=== PATIENT | female | born 1935 | race Caucasian/White ===

== ENCOUNTER 2019-03-15 19:42 | Inpatient (IN) | payer OTHER, MEDICAID ==
[~2019-03-15] VITALS: Ht 170.2 cm; Wt 64.9 kg
[2019-03-15 19:45] VITALS: BP_SYST 100
--- NOTE | 2019-03-15 20:11 | NUR ---
Patient to ER bed 8 to gown for evaluation. Side rails up. Report given to MARTHA Britt.
[2019-03-15] MEDS ORDERED: NACL 0.9% 1,000 ML IV ONE (20:45)
--- NOTE | 2019-03-15 20:45 | NUR ---
Dr. Nolasco bedside for pt eval
[2019-03-15 20:52] LABS: BASOPHILS # (AUTO) 0.1 K/uL (0.0-0.2); BASOPHILS % (AUTO) 0.4 % (0.0-2.0); EOSINOPHILS # (AUTO) 0.1 K/uL (0.0-0.4); EOSINOPHILS % (AUTO) 0.3 % (0.0-4.0); HEMATOCRIT 32.3 % (36-48); HEMOGLOBIN 10.8 g/dL (12.0-16.0); LYMPHOCYTES # (AUTO) 1.8 K/uL (1.0-5.5); LYMPHOCYTES % (AUTO) 7.9 % (20.5-51.5); MEAN CORPUSCULAR HEMOGLOBIN 32 pg (27-31); MEAN CORPUSCULAR HGB CONC 34 % (32-36); MEAN CORPUSCULAR VOLUME 95 fL (79.0-98.0); MONOCYTES # (AUTO) 2.5 K/uL (0.0-1.0); MONOCYTES % (AUTO) 10.9 % (1.7-9.3); NEUTROPHILS # (AUTO) 18.7 K/uL (1.8-7.7); NEUTROPHILS % (AUTO) 80.5 % (40.0-70.0); PLATELET COUNT (AUTO) 395 K/uL (130-430); RED BLOOD CELL COUNT(AUTO) 3.41 MIL/uL (4.2-6.2); RED CELL DISTRIBUTION WIDTH 12.8 % (9.0-15.0); WHITE BLOOD COUNT (AUTO) 23.2 K/uL (4.8-10.8)
--- NOTE | 2019-03-15 20:58 | NUR ---
Meliton FLOREZ from [facility] to ED C/O cough, suspicion of UTI, dysuria, nausea, vomiting, and diffuse body aches that began this morning. Patient states that every time she intakes fluids she vomits. She states her body aches are likely due to her arthritis which has been treated with morphine VSS no s/s of acute distress Resting on [employer] rails up
--- NOTE | 2019-03-15 21:00 | NUR ---
PCXR bedside, well tolerated
[2019-03-15 21:13] LABS: ANION GAP 5 (5-15); CALCIUM 9.3 mg/dL (8.4-11.0); CHLORIDE 98 mmol/L (98-107); CREATININE 0.64 mg/dL (0.55-1.30); GLUCOSE 233 mg/dL (70-99); POTASSIUM 3.8 mmol/L (3.5-5.1); SODIUM SERUM 133 mmol/L (136-145); UREA NITROGEN, BLOOD 12 mg/dL (8-21)
[2019-03-15 21:17] LABS: ALANINE AMINOTRANSFERASE 21 U/L (12-78); ALBUMIN 2.9 g/dL (3.4-4.8); ASPARTATE AMINOTRANSFERASE 13 U/L (10-37); TOTAL BILIRUBIN 0.4 mg/dL (0.0-1.0)
--- NOTE | 2019-03-15 22:00 | NUR ---
VSS no s/s of acute distress, IVF and Medications well tolerated
[2019-03-15] MEDS ORDERED: MORPHINE 2 MG/ML INJ. SYRINGE IVP ONE (22:15)
[2019-03-15] MEDS ORDERED: cefTRIAXone 1 GM IVPB PREMIX 50 ML IV ONE (22:15)
--- NOTE | 2019-03-15 23:00 | NUR ---
Dr. Nolasco bedside updating pt on adm for PNA
[2019-03-15 23:04] LABS: BILIRUBIN,URINE NEGATIVE (NEGATIVE); CLARITY/URINE CLEAR (CLEAR); COLOR,URINE YELLOW (YELLOW); GLUCOSE,URINE NEGATIVE (NEGATIVE); KETONES,URINE NEGATIVE (NEGATIVE); LEUKOCYTE ESTERASE ,URINE 2+ (NEGATIVE); NITRITE, URINE POSITIVE (NEGATIVE); PROTEIN URINE NEGATIVE (NEGATIVE); UROBILINOGEN,URINE 0.2 (0.2-1.0)
[2019-03-15 23:06] LABS: BLOOD, URINE TRACE (NEGATIVE)
[2019-03-15 23:13] LABS: BACTERIA,URINE MANY /HPF (None Seen); WBC,URINE >100 /HPF (0-3)
[2019-03-15 23:14] LABS: MUCUS,URINE 1+ /LPF (None Seen)
[2019-03-15] MEDS ORDERED: ONDANSETRON HCL 4 MG/2 ML VIAL IVP PRN (23:15)
[2019-03-16] VITALS (7 sets, daily range): BP systolic 96–160
--- NOTE | 2019-03-16 00:05 | NUR ---
ADMISSION: The patient, ANDREI LYON, 84 y/o, F admitted by MINE BRUNER MD, was given written information regarding hospital policies, unit procedures and contact persons. Valuables were checked and pt oriented to her room and surrounding.
--- NOTE | 2019-03-16 00:05 | NUR ---
Patient will be admitted to care of Dr. Quiroz. Admitted to MedSurg unit. Will go to room 107A. Belongings list completed. Complete and up to date summary report printed. SBAR report to be given at bedside with opportunity for questions.
[2019-03-16] MEDS ORDERED: FLU VACC TS2019(65UP)/MF59C/PF 45 MCG/0.5 ML SYRINGE I.M. PRN (01:45)
--- NOTE | 2019-03-16 02:35 | NUR ---
Pt is requesting diarrhea medication. Pt stated she has had 4 loose bowel movements since arrival in her room and will be having another bowel movement soon. Pt is also requesting Tylenol for generalized arthritic pain. Unable to administer Tylenol at this time because MD did not indicate pain scale. Pt also has non-productive cough and was informed MD will be paged. Addendum: 03/16/19 at 0515 by Vivian Soriano RN Toilet hat placed in patient's bathroom and pt was informed stool specimen is needed inside the hat the next time she moves her bowel. Pt verbalized understanding.
--- NOTE | 2019-03-16 02:37 | NUR ---
PAGED PAGED FOR ORDERS, SPOKE WITH MANNY
[2019-03-16] MEDS ORDERED: ACETAMINOPHEN 500 MG TABLET ONE (02:45)
--- NOTE | 2019-03-16 02:48 | NUR ---
Consultation Paged Reason for Consultation: Pulmonary Was consult called: Y Person to be notified: Arlene Consulting Physician: Dr. Smyth Electrotype Finisher Ordering Physician: Dr. Quiroz
--- NOTE | 2019-03-16 02:53 | NUR ---
Consultation Paged Reason for Consultation: ID Was consult called: Y Person to be notified: Arlene Consulting Physician: [employer] Ordering Physician: Dr. Quiroz
--- NOTE | 2019-03-16 03:00 | NUR ---
Pt came to [facility], nico and requesting Tylenol for generalized arthritic pain. Pt was informed MD will be paged again.
--- NOTE | 2019-03-16 03:01 | NUR ---
PAGEKenia STEVENS MD REGARDING ORDERS, SPOKE WITH MANNY
[2019-03-16] MEDS: ACETAMINOPHEN 500 MG TABLET PO PRN (03:06)
--- NOTE | 2019-03-16 05:00 | NUR ---
Pt is resting quietly in bed. Photos of back and eye bags taken. Fall and safety precautions are in place.
--- NOTE | 2019-03-16 06:34 | NUR ---
Pt is awake and resting quietly in bed. No fall or injury noted this shift. Fall and safety precautions are in place. No further bowel movement noted after toilet hat was placed in pt's bathroom. Will endorse to day shift nurse.
--- NOTE | 2019-03-16 07:27 | NUR ---
Am Rounds: Patient lying on the bed. Resting. Call light with in reach.Bed locked at lowest position. Not in any distress. Continue to monitor.
[2019-03-16 08:09] LABS: HEMATOCRIT 31.4 % (36-48); HEMOGLOBIN 10.6 g/dL (12.0-16.0); MEAN CORPUSCULAR HEMOGLOBIN 32 pg (27-31); MEAN CORPUSCULAR HGB CONC 34 % (32-36); MEAN CORPUSCULAR VOLUME 94 fL (79.0-98.0); PLATELET COUNT (AUTO) 391 K/uL (130-430); RED BLOOD CELL COUNT(AUTO) 3.34 MIL/uL (4.2-6.2); WHITE BLOOD COUNT (AUTO) 23.4 K/uL (4.8-10.8)
[2019-03-16 08:17] LABS: ANION GAP 7 (5-15); CALCIUM 9.2 mg/dL (8.4-11.0); CHLORIDE 95 mmol/L (98-107); CREATININE 0.61 mg/dL (0.55-1.30); GLUCOSE 208 mg/dL (70-99); SODIUM SERUM 130 mmol/L (136-145); UREA NITROGEN, BLOOD 8 mg/dL (8-21)
[2019-03-16 08:35] LABS: POTASSIUM 2.8 mmol/L (3.5-5.1)
--- NOTE | 2019-03-16 09:30 | NUR ---
BRP W ASSIST: PATIENT BEEN COUGHING BUT MINIMAL PHLEGM .WENT TO THE TOILET.NO DISTRESS.
[2019-03-16] MEDS: cefTRIAXone 1 GM in D5W 50 ML IV SCH (09:36)
[2019-03-16] MEDS: AZITHROMYCIN 250 MG in NS 250 ML IV SCH (09:46)
[2019-03-16] MEDS ORDERED: POTASSIUM CHLORIDE 20 MEQ TAB.PRT.SR PO ONE (10:30)
[2019-03-16] MEDS ORDERED: guaiFENesin/DEXTROMETHORPHAN 118 ML PO PRN (10:30)
[2019-03-16] MEDS: guaiFENesin/DEXTROMETHORPHAN 10 ML UDC PO PRN ×3 (11:08→20:22)
[2019-03-16] MEDS ORDERED: BENZONATATE 100 MG CAPSULE (TESSALON) PO ONE (11:30)
[2019-03-16] MEDS ORDERED: ENOXAPARIN SODIUM 40 MG/0.4 ML SYRINGE SUBCUT ONE (11:30)
--- NOTE | 2019-03-16 12:30 | NUR ---
RN ROUNDS: LUNCH SERVED. PER SON AT THE BEDSIDE,PATIENT NO APPETITE. TOOK APPLE JUICE.
[2019-03-16 13:35] LABS: ATYPICAL LYMPHOCYTES % 0 % (0-0); BAND % (MANUAL) 4 % (0-6); BASOPHILS % (MANUAL) 0 % (0-2); EOSINOPHILS % (MANUAL) 0 % (0-7); LYMPHOCYTES % (MANUAL) 9 % (20-46); MONOCYTES % (MANUAL) 9 % (0-11)
[2019-03-16] MEDS: IPRATROPIUM BROM 0.5 MG/2.5 ML VIAL.NEB (ATROVENT) INH SCH ×2 (14:49→20:20)
[2019-03-16] MEDS: LevALBUTEROL HCL 1.25 MG/0.5 ML *CONC.* VIAL.NEB (XOPENEX CONC.) INH SCH ×2 (14:49→20:20)
[2019-03-16] MEDS: BENZONATATE 100 MG CAPSULE (TESSALON) PO SCH ×2 (15:08→20:21)
--- NOTE | 2019-03-16 16:41 | NUR ---
PAGED PAGED MINE LEON AT [phone] SPOKE WITH JUNE.
[2019-03-16] MEDS ORDERED: SIMV20TA2 PO (17:21)
[2019-03-16] MEDS ORDERED: DORZ10DR10 LEFT EYE (17:21)
[2019-03-16] MEDS ORDERED: LOSA50TA3 PO (17:21)
[2019-03-16] MEDS ORDERED: GLU500 PO (17:21)
[2019-03-16] MEDS ORDERED: TRAZ-219 PO (17:21)
[2019-03-16] MEDS ORDERED: XALEYE OP (17:21)
--- NOTE | 2019-03-16 17:23 | NUR ---
NEW ORDER: SPOKE WITH DR Sarah BRUNER AND MED RECONCILED.INFORMED MD PATIENT WITH HISTORY OF DM AND NO ACCU CHECK NEEDED DUE TO BLOOD SUGAR IS CONTROLLED PER MD.MAY USED POLST MODIFIED CODE PER MD.
[2019-03-16] MEDS: metFORMIN HCL 500 MG TABLET PO SCH (18:11)
--- NOTE | 2019-03-16 18:35 | NUR ---
END OF SHIFT: PATIENT RESTING. COUGHING IMPROVED. CALL LIGHT WITH IN REACH. BED LOCKED AT LOWEST POSITION. SAFETY MEASURES RENDERED. CONDITION GUARDED.
--- NOTE | 2019-03-16 19:15 | NUR ---
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 lt.eye:eye sight acuity compromised.pt.presents capable to ambulate independent.pt.presents iv access intact;patent:iv lock. general statu stable.respiratory status stable;slight labored.congestion present.call light/telephone w/in the pt's reach.
--- NOTE | 2019-03-16 20:00 | NUR ---
pt.assessed.v/s assessed.values w/in normal limits.no c/o pain,nausea.i have apprised the pt.that i may provide snacks/beverages w/in the shift.no requests posited@this hour.general status stable.respiratory status stable:@room air.o2-sat%=94%.pt capable to reposition self. call light/telephone w/in reach of the pt.
[2019-03-16] MEDS: DORZOLAMIDE HCL/TIMOLOL MAL. 10 ML EYE DROPS (COSOPT) LEFT EYE SCH (20:19)
[2019-03-16] MEDS: LATANOPROST 2.5 ML DROPS (XALATAN) OP SCH (20:19)
[2019-03-16] MEDS: traZODone HCL 50 MG TABLET (DESYREL) PO SCH (20:20)
[2019-03-16] MEDS: LOSARTAN POTASSIUM 50 MG TABLET (COZAAR) PO SCH (20:20)
[2019-03-16] MEDS: SIMVASTATIN 20 MG TABLET PO SCH (20:21)
[2019-03-16] MEDS: BUDESONIDE 0.5 MG/2 ML AMPUL.NEB INH SCH (20:30)
--- NOTE | 2019-03-16 20:30 | NUR ---
pt.had requested medication;cough.i have administered robitussin;5ml po. Addendum: 03/17/19 at 0206 by Jagjit Gardner RN to f/u re;re-assessment of the medications efficacy.
--- NOTE | 2019-03-16 21:00 | NUR ---
2100p medications administered.pt.capable to ingest medications whole w/out difficulty.no requested posited@ this hour.
--- NOTE | 2019-03-16 21:55 | NUR ---
PAGED PAGED DOCTOR Roxana BRUNER
--- NOTE | 2019-03-16 22:00 | NUR ---
pt assessed.pt.presents quiescent affect;calm,resting.pt.had requested toilet paper.i have paged evs;toilet paper provided. no additional requests posited@this hour.general status stable.respiratory status stable;call light/telephone w/in reach of the pt.
--- NOTE | 2019-03-17 | NUR ---
pt.assessed v/s assessed:values w/in normal limits.pt had requested medication:cough/diarrhea.i have administered;immodium; 2mg po/robitussin:5ml po.no additonal requests posited@this hour.general status stable.respiratory status stable;unbalbored.pt.capable to reposition self.call light/telephone placed w/in reach of the pt.
[2019-03-17] MEDS: guaiFENesin/DEXTROMETHORPHAN 10 ML UDC PO PRN ×5 (00:14→21:29)
[2019-03-17] MEDS: LOPERAMIDE HCL 2 MG CAPSULE PO PRN ×3 (00:14→23:38)
--- NOTE | 2019-03-17 02:00 | NUR ---
pt.assessed.pt.presents quiescent affect;calm,somnolent./general status stable.respiratory status stable:o2-sat%=96%. pt capable to reposition self.call light/telephone w/in reach of the pt.
--- NOTE | 2019-03-17 04:00 | NUR ---
pt.assessed.pt.presents quiescent affect;resting,awake.general status anxious.no c/o pain,nausea.no requests posited@this hour. pt.capable to reposition self.call light/telephone w/in reach of the pt.
--- NOTE | 2019-03-17 04:30 | NUR ---
pt.requested medication;pain/cough.i have administered morhpine;2mg ivp to re-assess the efficacy of the pain medication per pain mgx protocol.i have administered robitussin;5ml po.pt.requested a blanket.i have provide the blanket;warm.no additional requests posited @this hour.
[2019-03-17] MEDS: MORPHINE 2 MG/ML INJ. SYRINGE IVP PRN ×3 (04:34→21:31)
--- NOTE | 2019-03-17 05:59 | NUR ---
pt.assessed.pt.presents quiescent affect;calm,somnolent.general status stable.respiratory status stable;unlabored.pt.capable to reposition self. no c/o pain,nausea.no requests posited@this hour.call light/telephone w/in reach of the pt.
[2019-03-17 06:42] LABS: CALCIUM 9.1 mg/dL (8.4-11.0); CHLORIDE 102 mmol/L (98-107); CREATININE 0.47 mg/dL (0.55-1.30); GLUCOSE 179 mg/dL (70-99); POTASSIUM 3.5 mmol/L (3.5-5.1); SODIUM SERUM 134 mmol/L (136-145); TOTAL BILIRUBIN 0.3 mg/dL (0.0-1.0); UREA NITROGEN, BLOOD 6 mg/dL (8-21)
[2019-03-17 06:43] LABS: ALBUMIN 2.4 g/dL (3.4-4.8)
[2019-03-17 06:54] LABS: BASOPHILS % (AUTO) 0.4 % (0.0-2.0); EOSINOPHILS # (AUTO) 0.2 K/uL (0.0-0.4); EOSINOPHILS % (AUTO) 1.2 % (0.0-4.0); HEMATOCRIT 28.7 % (36-48); HEMOGLOBIN 9.8 g/dL (12.0-16.0); LYMPHOCYTES # (AUTO) 2.1 K/uL (1.0-5.5); LYMPHOCYTES % (AUTO) 16.6 % (20.5-51.5); MEAN CORPUSCULAR HEMOGLOBIN 32 pg (27-31); MEAN CORPUSCULAR HGB CONC 34 % (32-36); MEAN CORPUSCULAR VOLUME 94 fL (79.0-98.0); MONOCYTES # (AUTO) 1.4 K/uL (0.0-1.0); MONOCYTES % (AUTO) 10.8 % (1.7-9.3); NEUTROPHILS # (AUTO) 9.2 K/uL (1.8-7.7); PLATELET COUNT (AUTO) 352 K/uL (130-430); RED BLOOD CELL COUNT(AUTO) 3.05 MIL/uL (4.2-6.2); RED CELL DISTRIBUTION WIDTH 12.9 % (9.0-15.0)
[2019-03-17 06:59] LABS: ASPARTATE AMINOTRANSFERASE 70 U/L (10-37)
[2019-03-17 07:00] LABS: ALANINE AMINOTRANSFERASE 77 U/L (12-78); ANION GAP < 3 (5-15)
--- NOTE | 2019-03-17 07:36 | NUR ---
AM ROUNDS: AWAKE DURING ROUNDS.UPDATES GIVEN BY NIGHT NURSE JOSIAS. IV SALINE LOCK. CALL LIGHT WITH IN REACH. BED LOCKED AT LOWEST POSITION.CONTINUE TO MONITOR.
[2019-03-17] MEDS: LevALBUTEROL HCL 1.25 MG/0.5 ML *CONC.* VIAL.NEB (XOPENEX CONC.) INH SCH ×3 (08:08→20:11)
[2019-03-17] MEDS: IPRATROPIUM BROM 0.5 MG/2.5 ML VIAL.NEB (ATROVENT) INH SCH ×3 (08:09→20:10)
[2019-03-17] MEDS: BUDESONIDE 0.5 MG/2 ML AMPUL.NEB INH SCH ×2 (08:11→20:10)
[2019-03-17] MEDS: metFORMIN HCL 500 MG TABLET PO SCH ×2 (08:30→17:18)
[2019-03-17] MEDS: BENZONATATE 100 MG CAPSULE (TESSALON) PO SCH ×3 (08:31→21:30)
[2019-03-17] MEDS: cefTRIAXone 1 GM in D5W 50 ML IV SCH (08:31)
[2019-03-17] MEDS: LOSARTAN POTASSIUM 50 MG TABLET (COZAAR) PO SCH ×2 (08:31→21:29)
[2019-03-17] MEDS: DORZOLAMIDE HCL/TIMOLOL MAL. 10 ML EYE DROPS (COSOPT) LEFT EYE SCH ×2 (08:32→21:30)
[2019-03-17] MEDS: ENOXAPARIN SODIUM 40 MG/0.4 ML SYRINGE SUBCUT SCH (08:33)
[2019-03-17] MEDS: AZITHROMYCIN 250 MG in NS 250 ML IV SCH (08:53)
[2019-03-17 08:56] VITALS: BP_SYST 122
--- NOTE | 2019-03-17 09:48 | NUR ---
Nutrition Update Luis Alberto Scale 18 noted. Pt admitted for PNA Diet: [facility] BMI: 22.3 kg/m2 RD to follow per nutrition care standards.
--- NOTE | 2019-03-17 11:27 | NUR ---
Wound Evaluation: Wound Consult ordered for Low Luis Alberto Score. Patient evaluated for a low Luis Alberto score of 18. Patient was awake, alert, confused and received in a Bri Bed with an IsoFex BRIANNA mattress. Patient is able to turn in bed independently. Recommend encourage and assist patient as needed with repositioning every 2 hours with pillow support. Elevate, off-load and float bilateral heels with pillows. Offload pressure areas with pillows for pressure re-distribution. Perform skin care and monitor skin integrity Q shift. Use moisture barrier cream on moisture susceptible areas QID and PRN for soiling. Bilateral infraorbital areas have periorbital puffiness. Skin assessment: 1. Back: Multiple, multiple macular brown discolorations, possible birthmarks, present on admission. Dry, stable. Recommend: No dressings needed. Continue to monitor q shift.
--- NOTE | 2019-03-17 11:30 | NUR ---
DCPA and SS consult: SHAKER OUT met with Pt. at bed side to conduct a DCPA. Pt. was agreeable to meet with SHAKER OUT, she is monolingual in Kosovan, slightly confused but generally able to give reasonable responses. Pt. is was residing at [facility] in [place] . Pt. utilizes a wheel chair which she has in her room at [facility] but can walk with some assistance. 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 Pt has been residing there for a month, she was previously at home alone prior to admission, she has no previous hx of SNF or . Person to notify in chart is daughter Isaura Dominique [phone] . SHAKER OUT spoke with daughter, who agrees for her to return to [facility] after stabilization. SHAKER OUT contacted [facility], patient has her bed pending. Tentative DCP is for PT. to return to this [facility]. No social service inquiry needed at this time. DCP/ SS/ CM will remain available as needed.
[2019-03-17 12:34] VITALS: BP_SYST 159
--- NOTE | 2019-03-17 14:41 | NUR ---
Dietitian Recommendations *[facility], [facility] Soft, Finely Chopped diet *Glucerna Shakes TID w/ meals *Each serving provides 220kcal and 10gPro *Encourage PO intake Please see Nutrition Assessment for further details. LT, RD
--- NOTE | 2019-03-17 16:15 | NUR ---
RN ROUNDS: RESTING NOT IN ANY DISTRESS.
[2019-03-17 16:32] VITALS: BP_SYST 139
[2019-03-17] MEDS: ACETAMINOPHEN 500 MG TABLET PO PRN ×2 (17:19→23:42)
--- NOTE | 2019-03-17 18:43 | NUR ---
CLOSING NOTES: PATIENT HAVING DINNER,SITTING ON THE BED. CALL LIGHT WITH IN REACH. BED LOCKED AT LOWEST POSITION. SAFETY MEASURES RENDERED. CONTINUE TO MONITOR.
--- NOTE | 2019-03-17 19:30 | NUR ---
Opening Note Patient sitting up in bed w/ legs dangle. No s/sx of distress, nonlabored breathing. Bed is locked in lowest position and call light w/in reach. Updated board and reviewed plan of care.
[2019-03-17 20:00] VITALS: BP_SYST 159
[2019-03-17] MEDS: LATANOPROST 2.5 ML DROPS (XALATAN) OP SCH ×2 (21:00→23:40)
[2019-03-17] MEDS: SIMVASTATIN 20 MG TABLET PO SCH (21:29)
[2019-03-17] MEDS: traZODone HCL 50 MG TABLET (DESYREL) PO SCH (21:30)
--- NOTE | 2019-03-17 21:31 | NUR ---
Medications-Pain med Due medications given, patient swallowed tablets w/out difficulty. Patient reporting severe pain and administered Morphine for severe pain as ordered. Patient has been coughing and given Robitusin for cough as ordered. Will continue to monitor.
--- NOTE | 2019-03-17 23:42 | NUR ---
C/O diarrhea, c/o pain Patient reporting diarrhea and moderate pain. Imodium given for diarrhea as ordered and Tylenol for moderate pain as ordered. Will continue to monitor.
[2019-03-18 00:11] VITALS: BP_SYST 167
--- NOTE | 2019-03-18 03:20 | NUR ---
Awake, snack Patient is awake walking in hallway and asking for a snack. I gave her apple juice, one adam cracker and she also requested ice water which was also provided.
--- NOTE | 2019-03-18 05:04 | NUR ---
OOB Patient is up out of bed for use of restroom, she voided and returned to bed. Bed alarm on.
[2019-03-18] MEDS: ACETAMINOPHEN 500 MG TABLET PO PRN (06:09)
[2019-03-18] MEDS: MORPHINE 2 MG/ML INJ. SYRINGE IVP PRN ×3 (06:17→18:48)
[2019-03-18] MEDS: guaiFENesin/DEXTROMETHORPHAN 10 ML UDC PO PRN ×3 (07:06→18:47)
[2019-03-18] MEDS: LOPERAMIDE HCL 2 MG CAPSULE PO PRN ×2 (07:07→14:04)
[2019-03-18 07:13] LABS: BASOPHILS # (AUTO) 0.1 K/uL (0.0-0.2); BASOPHILS % (AUTO) 0.6 % (0.0-2.0); EOSINOPHILS # (AUTO) 0.3 K/uL (0.0-0.4); EOSINOPHILS % (AUTO) 2.6 % (0.0-4.0); HEMOGLOBIN 10.4 g/dL (12.0-16.0); LYMPHOCYTES # (AUTO) 2.1 K/uL (1.0-5.5); LYMPHOCYTES % (AUTO) 19.8 % (20.5-51.5); MEAN CORPUSCULAR HEMOGLOBIN 32 pg (27-31); MEAN CORPUSCULAR HGB CONC 33 % (32-36); MEAN CORPUSCULAR VOLUME 95 fL (79.0-98.0); MONOCYTES # (AUTO) 1.2 K/uL (0.0-1.0); MONOCYTES % (AUTO) 11.7 % (1.7-9.3); NEUTROPHILS # (AUTO) 6.8 K/uL (1.8-7.7); NEUTROPHILS % (AUTO) 65.3 % (40.0-70.0); PLATELET COUNT (AUTO) 424 K/uL (130-430); RED BLOOD CELL COUNT(AUTO) 3.28 MIL/uL (4.2-6.2); RED CELL DISTRIBUTION WIDTH 13.3 % (9.0-15.0); WHITE BLOOD COUNT (AUTO) 10.5 K/uL (4.8-10.8)
[2019-03-18] MEDS: LevALBUTEROL HCL 1.25 MG/0.5 ML *CONC.* VIAL.NEB (XOPENEX CONC.) INH SCH ×3 (07:48→20:13)
[2019-03-18] MEDS: IPRATROPIUM BROM 0.5 MG/2.5 ML VIAL.NEB (ATROVENT) INH SCH ×3 (07:48→20:13)
[2019-03-18 07:52] LABS: ANION GAP 4 (5-15); CHLORIDE 103 mmol/L (98-107); CREATININE 0.53 mg/dL (0.55-1.30); GLUCOSE 187 mg/dL (70-99); POTASSIUM 3.6 mmol/L (3.5-5.1); SODIUM SERUM 137 mmol/L (136-145); UREA NITROGEN, BLOOD 6 mg/dL (8-21)
[2019-03-18 08:00] VITALS: BP_SYST 167
--- NOTE | 2019-03-18 08:00 | NUR ---
Note Pt sitting on side of bed eating her breakfast. IV in left hand intact and patent at this time. No SOB/resp distress or pain/discomfort noted a this time. No needs noted. Call light within reach.
[2019-03-18] MEDS: BUDESONIDE 0.5 MG/2 ML AMPUL.NEB INH SCH ×2 (08:15→20:13)
[2019-03-18] MEDS: BENZONATATE 100 MG CAPSULE (TESSALON) PO SCH ×3 (09:04→20:43)
[2019-03-18] MEDS: LOSARTAN POTASSIUM 50 MG TABLET (COZAAR) PO SCH ×2 (09:04→20:43)
[2019-03-18] MEDS: metFORMIN HCL 500 MG TABLET PO SCH ×2 (09:04→17:42)
[2019-03-18] MEDS: cefTRIAXone 1 GM in D5W 50 ML IV SCH (09:06)
[2019-03-18] MEDS: ENOXAPARIN SODIUM 40 MG/0.4 ML SYRINGE SUBCUT SCH (09:08)
[2019-03-18] MEDS: DORZOLAMIDE HCL/TIMOLOL MAL. 10 ML EYE DROPS (COSOPT) LEFT EYE SCH ×2 (09:19→20:42)
[2019-03-18] MEDS: AZITHROMYCIN 250 MG in NS 250 ML IV SCH (10:07)
--- NOTE | 2019-03-18 11:00 | NUR ---
Note Pt ambulates to restroom independently with steady gait. Pt has coughing spells - Robitussin PO given as scheduled and PRN. No needs noted. Call light within reach.
[2019-03-18 11:26] VITALS: BP_SYST 158
--- NOTE | 2019-03-18 14:45 | NUR ---
Note Pt has breathing treatments as scheduled and PRN all shift. No needs noted. Pt resting in bed at this time. Call light within reach.
[2019-03-18 15:31] VITALS: BP_SYST 163
--- NOTE | 2019-03-18 18:00 | NUR ---
Note Pt was checked on q1' and PRN all shift. Pt's daughter Isaura came to see pt and then left in 15 minutes. Pt stable at this time. Pt ambulates to restroom with steady gait. Pt's left hand IV intact and patent. Call light within reach.
--- NOTE | 2019-03-18 19:20 | NUR ---
OPENING NOTES Pt and endorsement received from day shift nurse. Pt is resting in bed with both eyes closed, with visible chest rise and fall with non-labored breathing noted. Pt on saline lock on left forearm G20. No complains of pain at this time. No signs of acute distress or SOB noted. Safety precautions in place with 3 side rails up, wheels locked, bed alarm on and in lowest level. Call light with pt. Will continue to monitor.
[2019-03-18 20:40] VITALS: BP_SYST 159
[2019-03-18] MEDS: LATANOPROST 2.5 ML DROPS (XALATAN) OP SCH (20:42)
[2019-03-18] MEDS: traZODone HCL 50 MG TABLET (DESYREL) PO SCH (20:42)
[2019-03-18] MEDS: SIMVASTATIN 20 MG TABLET PO SCH (20:42)
--- NOTE | 2019-03-18 20:45 | NUR ---
MED PASS All due meds given and pt tolerated well. No complains of pain and no signs of acute distress noted. Encouraged to use call light when needed. Safety precautions in place with 3 side rails up, wheels locked, bed alarm on and in lowest level. Call light with pt. Will continue to monitor.
--- NOTE | 2019-03-18 23:35 | NUR ---
ROUNDS Pt is resting in bed with both eyes closed, with visible chest rise and fall with non-labored breathing noted. No complains of pain and no signs of acute distress noted. Safety precautions in place and call light with pt. Will continue to monitor.
[2019-03-19] MEDS: guaiFENesin/DEXTROMETHORPHAN 10 ML UDC PO PRN ×2 (00:26→09:21)
[2019-03-19 00:29] VITALS: BP_SYST 158
--- NOTE | 2019-03-19 03:33 | NUR ---
ROUNDS Pt is resting in bed with both eyes closed, with visible chest rise and fall with non-labored breathing noted. Pt is easily arousable. No signs of acute distress or SOB noted. No needs at this time. Safety precautions in place and call light with pt. Will continue to monitor.
--- NOTE | 2019-03-19 06:16 | NUR ---
CLOSING NOTES Pt is resting in bed with both eyes closed, with visible chest rise and fall with non-labored breathing noted. No complains of pain at this time. No signs of acute distress or SOB noted. All needs attended throughout the shift. Safety precautions maintained with 3 side rails up, wheels locked, bed alarm on and in lowest level. Call light with pt. Will endorse to day shift nurse.
[2019-03-19] MEDS: LevALBUTEROL HCL 1.25 MG/0.5 ML *CONC.* VIAL.NEB (XOPENEX CONC.) INH SCH ×2 (07:56→15:41)
[2019-03-19] MEDS: IPRATROPIUM BROM 0.5 MG/2.5 ML VIAL.NEB (ATROVENT) INH SCH ×2 (07:56→15:41)
[2019-03-19 08:00] VITALS: BP_SYST 166
--- NOTE | 2019-03-19 08:00 | NUR ---
Note Pt sitting up in bed eating her breakfast. IV in left forearm intact and patent at this time. No SOB/resp distress noted at this time. Pt has coughing, pty states it is much better than yesterday, all the medications helped. Pt has severe lower back pain, pain medication to be given shortly. Call light within reach.
[2019-03-19] MEDS: cefTRIAXone 1 GM in D5W 50 ML IV SCH (08:13)
[2019-03-19] MEDS: metFORMIN HCL 500 MG TABLET PO SCH ×3 (08:13→17:19)
[2019-03-19] MEDS: BENZONATATE 100 MG CAPSULE (TESSALON) PO SCH ×2 (08:13→15:00)
[2019-03-19] MEDS: MORPHINE 2 MG/ML INJ. SYRINGE IVP PRN ×2 (08:14→15:04)
[2019-03-19] MEDS: LOSARTAN POTASSIUM 50 MG TABLET (COZAAR) PO SCH (08:17)
[2019-03-19] MEDS: DORZOLAMIDE HCL/TIMOLOL MAL. 10 ML EYE DROPS (COSOPT) LEFT EYE SCH (08:17)
[2019-03-19] MEDS: ENOXAPARIN SODIUM 40 MG/0.4 ML SYRINGE SUBCUT SCH (08:19)
[2019-03-19] MEDS: BUDESONIDE 0.5 MG/2 ML AMPUL.NEB INH SCH (08:21)
[2019-03-19] MEDS: AZITHROMYCIN 250 MG in NS 250 ML IV SCH (10:12)
--- NOTE | 2019-03-19 10:15 | NUR ---
Note Dr Smyth at bedside with Urdu speaking RN to answer questions/concerns that pt may have. Pt now resting in bed and states no concerns at this time. Call light within reach.
[2019-03-19 11:27] VITALS: BP_SYST 148
--- NOTE | 2019-03-19 12:10 | NUR ---
Note Pt assisted to sit on side of bed to eat her lunch at this time. Pt denies any needs at this time. Call light within reach.
[2019-03-19 12:11] VITALS: BP_SYST 148
[2019-03-19] MEDS: LOPERAMIDE HCL 2 MG CAPSULE PO PRN (13:51)
--- NOTE | 2019-03-19 15:15 | NUR ---
Dc Planning : Phoned dr. Quiroz for dcp:the md order to dc pt back to snf with IV Rocephin for 5 more days. -- MARTHA An made aware. >> Faxed referral package to Yasir/davon at [facility]. fax# [phone]. Per Yasir the pt is on bed hold and may return to room 108. RN to report # [phone]. Addendum: 03/19/19 at 1630 by Natasha Mooney RN >> Booked with Kimo at [facility] # [phone], BLS transfer, potato picker time at 6 pm. -- MARTHA An made aware. Addendum: 03/19/19 at 1631 by Natasha Mooney RN CM lvm to pt's dtr/Isaura # [phone] regarding pt is to retuning back to [facility] acute today at 6 pm. MARTHA An made aware and to call notify dtr again.
[2019-03-19 15:22] VITALS: BP_SYST 162
[2019-03-19] MEDS ORDERED: ROCPM1 IV ×2 (16:37→16:50)
[2019-03-19 16:56] VITALS: BP_SYST 162
--- NOTE | 2019-03-19 17:00 | NUR ---
Note Report was given to Yasir THOMAS at [facility] at this time. Isaura (pt's daughter) was called and notified of transfer back to [place] today at 1800. Pt's IV was wrapped with Kerlix wrap and Pt packed all her belongings and checked side table and drawers for belongings. Pt stable. Pt was checked on q1' and PRN all shift for needs and care. Pt wearing her Pyjama top and bottoms and has all other belongings in bag by her side. No needs noted. Call light within reach.
--- NOTE | 2019-03-19 17:27 | NUR ---
Nutrition F/U (short note d/t high patient load) RD reviewed pt's current EMR including diet Hx, physician notes, nursing notes, pertinent labs/meds/procedures, care trends, and care activity. Current Diet Order: CCHO x 3 days Per EMR, pt has had poor appetite -- PO intake records indicate 42% average x5 meals. Pt may not be tolerating texture of foods -- previous diet order at [facility] was mechanical soft, IAN, CCHO, finely chopped diet. Pt may benefit from food-texture modification as well as ONS for improved nutritional intakes. Recommend CCHO, mechanical soft, finely chopped diet w/ Glucerna TID (ONS provides 660 kcal/day, 30 gm protein/day). Pt remains at high nutritional risk; RD to F/U within 2-3 days.
--- NOTE | 2019-03-19 17:50 | NUR ---
Note Pt sitting on BS chair eating her dinner at this time. No needs noted at this time. Call light within reach
--- NOTE | 2019-03-19 18:35 | NUR ---
Note [facility] ambulance at bedside, report given. Discharge packet given to EMT to give [facility]. Pt's IV on left hand was wrapped in Kerlix for IVPB antibiotics for 5 more days per MD order. Pt was checked on q1' and PRN all shift for needs and care. Pt stable at this time. Pt off the floor via gurney with all her belongings and discharge packet. No needs noted.
== END 2019-03-19 18:35 | DRG 871 ==
LOC: SED 19:42 → SMU 23:08
PROVIDERS: ADMIT Family Medicine; ATTEND Family Medicine
DX: A41.9 Sepsis, unspecified organism (principal); J18.9 Pneumonia, unspecified organism; N39.0 Urinary tract infection, site not specified; J44.0 Chronic obstructive pulmonary disease with (acute) lower respiratory infection; F03.90 Unspecified dementia, unspecified severity, without behavioral disturbance, psychotic disturbance, mood disturbance, and anxiety; E78.5 Hyperlipidemia, unspecified; E11.9 Type 2 diabetes mellitus without complications; G89.29 Other chronic pain; H40.9 Unspecified glaucoma; I10 Essential (primary) hypertension; K21.9 Gastro-esophageal reflux disease without esophagitis; M19.90 Unspecified osteoarthritis, unspecified site; F41.9 Anxiety disorder, unspecified; B96.20 Unspecified Escherichia coli [E. coli] as the cause of diseases classified elsewhere; M54.5 Low back pain; D64.9 Anemia, unspecified; Z82.49 Family history of ischemic heart disease and other diseases of the circulatory system; Z83.3 Family history of diabetes mellitus; Z79.899 Other long term (current) drug therapy
CPT/HCPCS: 36415; 71045; 80048; 80053; 81000-TC; 83605; 85007; 85025; 85027; 86710; 87040-TC; 87070-TC; 87081; 87086; 87186-TC; 87205-TC; 94640; 96361; 96365; 96375; 99285; J0456; J0696; J1650; J2270; J7050; J7060; J7612; J7626

== ENCOUNTER 2020-05-08 14:09 | Emergency (ER) | payer OTHER, MEDICAID ==
[~2020-05-08] VITALS: Ht 170.2 cm; Wt 72.6 kg
[2020-05-08 14:09] VITALS: BP_SYST 147
[~2020-05-08 14:09] MED LIST: ACET-2634 PO; ACET325T PO; ANT30 PO; APIX5TAB PO; BISA5TAB10 PO; DOCU-144 PO; DORZ10DR10 LEFT EYE; ESCI5TAB PO; FURO-149 PO; GLU500 PO; IBUP-1970 PO; INSU100I52; IPRA4AER INH; LINA5TAB2 PO; LOSA50TA3 PO; METO50TA7 PO; MORP15TA60 PO; MULT-1117 PO; ONDA4TAB5 PO; POLY1POW14 PO; POTA10TA21 PO; PRO40 PO; SIMV20TA2 PO; TEMA22.5 PO; TIMO5DRO16 EACH EYE; TRAZ-251 PO; VITD2000 PO; XALEYE OP
--- NOTE | 2020-05-08 14:09 | NUR ---
Placed in room 5. Placed on field research assistant, blood pressure machine and pulse oximeter. To gown for exam. Side rails up. Report given to MARTHA Wood.
--- NOTE | 2020-05-08 14:10 | NUR ---
Pt came to ER via BLS ambulance for suspected UTI, pt resting in gurney at this time, comfortable, urine sample collected, VSS.
--- NOTE | 2020-05-08 14:11 | NUR ---
ER at bedside examining patient.
[2020-05-08 14:51] LABS: BILIRUBIN,URINE NEGATIVE (NEGATIVE); CLARITY/URINE CLEAR (CLEAR); COLOR,URINE YELLOW (YELLOW); GLUCOSE,URINE NEGATIVE (NEGATIVE); KETONES,URINE NEGATIVE (NEGATIVE); LEUKOCYTE ESTERASE ,URINE NEGATIVE (NEGATIVE); NITRITE, URINE NEGATIVE (NEGATIVE); PROTEIN URINE NEGATIVE (NEGATIVE); UROBILINOGEN,URINE 0.2 (0.2-1.0)
[2020-05-08 14:54] LABS: BLOOD, URINE TRACE (NEGATIVE)
--- NOTE | 2020-05-08 14:54 | NUR ---
Daughter Isaura left phone number [phone]
[2020-05-08 14:56] LABS: BASOPHILS # (AUTO) 0.1 K/uL (0.0-0.2); BASOPHILS % (AUTO) 0.5 % (0.0-2.0); EOSINOPHILS # (AUTO) 0.1 K/uL (0.0-0.4); EOSINOPHILS % (AUTO) 0.8 % (0.0-4.0); HEMATOCRIT 36.2 % (36-48); HEMOGLOBIN 11.6 g/dL (12.0-16.0); LYMPHOCYTES # (AUTO) 3.2 K/uL (1.0-5.5); LYMPHOCYTES % (AUTO) 26.4 % (20.5-51.5); MEAN CORPUSCULAR HEMOGLOBIN 31 pg (27-31); MEAN CORPUSCULAR HGB CONC 32 % (32-36); MEAN CORPUSCULAR VOLUME 97 fL (79.0-98.0); MONOCYTES # (AUTO) 0.8 K/uL (0.0-1.0); MONOCYTES % (AUTO) 6.5 % (1.7-9.3); NEUTROPHILS # (AUTO) 8.1 K/uL (1.8-7.7); NEUTROPHILS % (AUTO) 65.8 % (40.0-70.0); PLATELET COUNT (AUTO) 176 K/uL (130-430); RED BLOOD CELL COUNT(AUTO) 3.72 MIL/uL (4.2-6.2); RED CELL DISTRIBUTION WIDTH 17.5 % (9.0-15.0); WHITE BLOOD COUNT (AUTO) 12.3 K/uL (4.8-10.8)
[2020-05-08 15:09] LABS: BACTERIA,URINE RARE /HPF (None Seen); WBC,URINE 0-3 /HPF (0-3)
[2020-05-08 15:10] LABS: CALCIUM OXALATE CRYSTALS,UR 0-10 /HPF (None Seen)
[2020-05-08 15:17] LABS: ANION GAP 3 (5-15); CALCIUM 8.4 mg/dL (8.4-11.0); CHLORIDE 97 mmol/L (98-107); CREATININE 0.77 mg/dL (0.55-1.30); GLUCOSE 145 mg/dL (70-99); INR 1.3 (0.8-1.2); PROTHROMBIN TIME 13.2 SECS (9.5-12.5); SODIUM SERUM 138 mmol/L (136-145); UREA NITROGEN, BLOOD 8 mg/dL (8-21)
[2020-05-08 15:19] LABS: POTASSIUM 2.8 mmol/L (3.5-5.1)
[2020-05-08 15:23] LABS: ALANINE AMINOTRANSFERASE 30 U/L (12-78); ALBUMIN 3.2 g/dL (3.4-4.8); ASPARTATE AMINOTRANSFERASE 27 U/L (10-37); TOTAL BILIRUBIN 1.3 mg/dL (0.0-1.0)
[2020-05-08] MEDS ORDERED: KCL 20 mEq in D5/0.45NS 1000mL 1,000 ML IV ONE (15:30)
[2020-05-08] MEDS ORDERED: POTASSIUM CHLORIDE 20 MEQ TAB.PRT.SR PO ONE (15:30)
[2020-05-08] MEDS ORDERED: KCL 40 mEq in 100 mL (PREMIX) 100 ML IV ONE (15:45)
--- NOTE | 2020-05-08 16:08 | NUR ---
Pt resting in [facility] at this time, no distress noted tolerating treatment
--- NOTE | 2020-05-08 17:25 | NUR ---
Pt in [facility] resting comfortably, on monitor, VSS
--- NOTE | 2020-05-08 19:00 | NUR ---
VSS no s/s acute distress Resting on gursoper rails up
--- NOTE | 2020-05-08 19:55 | NUR ---
Awaiting S transport back to [facility] DC
--- NOTE | 2020-05-08 20:55 | NUR ---
S/W Pedro THOMAS from [facility], Discharge report given
--- NOTE | 2020-05-08 21:11 | NUR ---
still awaiting BLS transport back to [facility]
[2020-05-08] MEDS ORDERED: LORazepam 2 MG/ML VIAL IM ONE (21:30)
[2020-05-08 22:05] VITALS: BP_SYST 139
--- NOTE | 2020-05-08 22:05 | NUR ---
Patient given written and verbal discharge instructions and verbalizes understanding. ER MD discussed with patient the results and treatment provided. Patient in stable condition. ID arm band removed. IV catheter removed intact and dressing applied, no active bleeding. Patient educated on pain management and to follow up with PMD. Pain Scale 0/10 Opportunity for questions provided and answered. Pt Transport back with BLS back to [facility] / MARTHA mann
== END 2020-05-08 22:05 | disposition home or self-care (01) ==
LOC: SED 14:09
DX: E87.6 Hypokalemia (principal); R10.9 Unspecified abdominal pain; I10 Essential (primary) hypertension; E11.9 Type 2 diabetes mellitus without complications; K21.9 Gastro-esophageal reflux disease without esophagitis; F41.9 Anxiety disorder, unspecified; E86.0 Dehydration; Z90.49 Acquired absence of other specified parts of digestive tract; Z79.899 Other long term (current) drug therapy; Z79.4 Long term (current) use of insulin; Z91.018 Allergy to other foods; Z20.822 Contact with and (suspected) exposure to COVID-19
CPT/HCPCS: 36415; 71045; 74176; 76376; 80053; 81000; 83605; 84484; 85025; 85610; 85730; 87040; 87086; 87426; 93005; 96365; 96372; 99285; J2060